=== PATIENT | female | born 1935 | race African-American/Black ===

== ENCOUNTER 2022-12-22 22:08 | Inpatient (IN) | payer MEDICARE, OTHER ==
[~2022-12-22] VITALS: Ht 157.5 cm; Wt 68.0 kg
[2022-12-22] MEDS ORDERED: SODIUM CHLORIDE 0.9% 1,000 ML IV ONE (23:15)
[2022-12-22 23:45] LABS: BASOPHILS % 0.3 % (0.0-2.0); EOSINOPHILS % 1.8 % (0.0-5.0); HEMATOCRIT. 33.3 % (36.0-48.0); HEMOGLOBIN. 10.9 g/dL (12.0-16.0); LYMPHOCYTES % 30.1 % (20.0-50.0); MEAN CORPUSCULAR HEMOGLOBIN 27.9 pg (28.0-32.0); MEAN CORPUSCULAR VOLUME 85.1 fL (81.0-99.0); MEAN PLATELET VOLUME 9.3 fl (7.4-10.4); MONOCYTES % 8.6 % (2.0-8.0); NEUTROPHILS % 59.2 % (40.0-76.0); PLATELET 196 x1000/uL (130-400); RED BLOOD CELL COUNT 3.91 mill/uL (4.2-5.4); RED CELL DISTRIBUTION WIDTH 16.1 % (11.6-14.6)
[2022-12-22 23:52] LABS: CHLORIDE 108 mEq/L (98-107)
[2022-12-22 23:55] LABS: PROTHROMBIN TIME 11.1 sec (9.6-11.0)
[2022-12-23] MEDS ORDERED: HYDRALAZINE 20MG/ML VIAL IV NR (02:30)
[2022-12-23] MEDS ORDERED: ONDANSETRON HCL 4MG/2ML INJ IV PRN (02:30)
[2022-12-23] MEDS ORDERED: DIPHENHYDRAMINE 50MG/ML VIAL IV PRN (02:30)
[2022-12-23] MEDS ORDERED: ACETAMINOPHEN 325MG TABLET PO PRN ×2 (02:30)
[2022-12-23] MEDS ORDERED: CLONIDINE 0.1MG TABLET PO PRN (02:30)
[2022-12-23] MEDS ORDERED: SODIUM CHLORIDE 0.9% 1,000 ML IV SCH (02:30)
[2022-12-23] MEDS ORDERED: IPRATROPIUM/ALBUTEROL 0.5-3(2.5)MG/3ML NEB HHN PRN (02:30)
[2022-12-23] MEDS ORDERED: GUAIFENESIN 200MG/10ML SUGAR FREE UDC PO PRN (02:30)
[2022-12-23] MEDS ORDERED: DOCUSATE SODIUM 100MG CAPSULE PO PRN (02:30)
[2022-12-23] MEDS ORDERED: HYDROCODONE/ACETAMINOPHEN 5/325MG TABLET PO PRN (02:30)
[2022-12-23 05:26] VITALS: BP 157/79
[2022-12-23] MEDS ORDERED: IOHEXOL-300 100 ML BOTTLE ONE (05:38)
[2022-12-23 08:00] VITALS: BP 143/67
[2022-12-23] MEDS ORDERED: ENOXAPARIN 30MG/0.3ML SYR SUBCUT SCH (09:00)
[2022-12-23] MEDS ORDERED: PANTOPRAZOLE SODIUM 40 MG/VIAL IV SCH (09:00)
[2022-12-23] MEDS: AMLODIPINE 5MG TABLET PO SCH (09:20)
[2022-12-23 12:00] VITALS: BP 130/69
[2022-12-23] MEDS ORDERED: HYDR-4009 PO (13:00)
[2022-12-23] MEDS ORDERED: FERR325T6 MT (13:00)
[2022-12-23] MEDS ORDERED: PRAV40TA58 MT (13:00)
[2022-12-23] MEDS ORDERED: AMLO5TAB88 MT (13:00)
[2022-12-23] MEDS ORDERED: ASPI-1497 MT (13:00)
[2022-12-23] MEDS ORDERED: CARV25TA47 MT (13:00)
[2022-12-23] MEDS ORDERED: LISI20TA31 MT (13:00)
[2022-12-23] MEDS ORDERED: MEMA5TAB7 PO (13:00)
[2022-12-23] MEDS ORDERED: OMEP20CA14 MT (13:00)
[2022-12-23 16:00] VITALS: BP 135/70
[2022-12-23] MEDS ORDERED: DEXTROSE 50% WATER 50ML SYRINGE IV PRN (16:00)
[2022-12-23] MEDS ORDERED: NALOXONE HCL 0.4MG/ML VIAL IV PRN (16:15)
[2022-12-23] MEDS: POLYETHYLENE GLYCOL 3350 (17GM) 1 DOSE PACK PO SCH (16:48)
[2022-12-23] MEDS: BLOOD SUGAR DIAGNOSTIC STRIP TEST SCH ×2 (16:48→20:16)
[2022-12-23] MEDS: DEXT 5%/0.45% NACL 1000ML 1,000 ML IV SCH (16:48)
[2022-12-23] MEDS: DOCUSATE SODIUM 250MG CAPSULE PO SCH (16:48)
[2022-12-23] MEDS: INSULIN LISPRO 100 UNITS/ML SUBCUT SCH ×2 (17:06→20:16)
[2022-12-23] MEDS: PANTOPRAZOLE SODIUM 40 MG/VIAL IV SCH (20:16)
[2022-12-23 21:32] LABS: HEMOGLOBIN 11.4 g/dL (12.0-16.0)
[2022-12-23 21:47] LABS: TOTAL IRON BINDING CAPACITY 282 ug/dL (250-450)
[2022-12-23 23:34] VITALS: BP 146/61
[2022-12-24 00:49] LABS: HEMATOCRIT 32.5 % (36.0-48.0)
[2022-12-24 04:00] VITALS: BP 153/70
[2022-12-24] MEDS: DEXT 5%/0.45% NACL 1000ML 1,000 ML IV SCH ×2 (04:16→12:21)
[2022-12-24 06:21] LABS: BASOPHILS % 0.6 % (0.0-2.0); EOSINOPHILS % 1.6 % (0.0-5.0); HEMATOCRIT. 33.9 % (36.0-48.0); HEMOGLOBIN. 11.5 g/dL (12.0-16.0); LYMPHOCYTES % 31.2 % (20.0-50.0); MEAN CORPUSCULAR HEMOGLOBIN 28.4 pg (28.0-32.0); MEAN CORPUSCULAR VOLUME 83.6 fL (81.0-99.0); MONOCYTES % 8.7 % (2.0-8.0); NEUTROPHILS % 57.9 % (40.0-76.0); PLATELET 203 x1000/uL (130-400); RED BLOOD CELL COUNT 4.05 mill/uL (4.2-5.4); RED CELL DISTRIBUTION WIDTH 16.1 % (11.6-14.6)
[2022-12-24] MEDS: BLOOD SUGAR DIAGNOSTIC STRIP TEST SCH ×2 (06:24→12:20)
[2022-12-24] MEDS: INSULIN LISPRO 100 UNITS/ML SUBCUT SCH ×2 (06:24→12:10)
[2022-12-24 06:42] LABS: CHLORIDE 109 mEq/L (98-107)
[2022-12-24 06:56] LABS: HDL CHOLESTEROL 76 mg/dL (40-59); LDL CHOLESTEROL 63 mg/dL (5-100); T4 FREE 1.02 ng/dL (0.76-1.46)
[2022-12-24 08:00] VITALS: BP 157/90
[2022-12-24] MEDS: PANTOPRAZOLE SODIUM 40 MG/VIAL IV SCH (08:41)
[2022-12-24] MEDS: POLYETHYLENE GLYCOL 3350 (17GM) 1 DOSE PACK PO SCH (08:41)
[2022-12-24] MEDS: DOCUSATE SODIUM 250MG CAPSULE PO SCH (08:41)
[2022-12-24] MEDS: AMLODIPINE 5MG TABLET PO SCH (08:47)
[2022-12-24] MEDS ORDERED: DOCU250C14 MT (08:59)
[2022-12-24 10:50] VITALS: BP 145/90
[2022-12-24 12:00] VITALS: BP 139/79
[2022-12-24 13:00] LABS: HEMATOCRIT 35.7 % (36.0-48.0); HEMOGLOBIN 11.7 g/dL (12.0-16.0)
== END 2022-12-24 14:10 | disposition home or self-care (01) | DRG 379 ==
LOC: ER 22:08 → 7EST 12-23 03:29 → ENRESERV 12-23 04:20
PROVIDERS: ADMIT Internal Medicine; ATTEND Internal Medicine
DX: K57.31 Diverticulosis of large intestine without perforation or abscess with bleeding (principal); I10 Essential (primary) hypertension; F03.90 Unspecified dementia, unspecified severity, without behavioral disturbance, psychotic disturbance, mood disturbance, and anxiety; D64.9 Anemia, unspecified; I25.10 Atherosclerotic heart disease of native coronary artery without angina pectoris; K92.1 Melena; I25.2 Old myocardial infarction; I71.43 Infrarenal abdominal aortic aneurysm, without rupture; K59.00 Constipation, unspecified; K64.8 Other hemorrhoids; K80.20 Calculus of gallbladder without cholecystitis without obstruction; K86.89 Other specified diseases of pancreas; Z96.649 Presence of unspecified artificial hip joint; Z79.899 Other long term (current) drug therapy; K76.89 Other specified diseases of liver
CPT/HCPCS: 36415; 74177; 80053; 80061; 82607; 82728; 82746; 82962; 83036; 83540; 83550; 83605; 84439; 84443; 85014; 85018; 85025; 85044; 86850; 86900; 99291; C9113; J0360; J7030; Q9967